=== PATIENT | male | born 2000 | race Two or more races ===

== ENCOUNTER 2019-06-07 10:26 | Emergency (ER) | payer MEDICAID ==
[~2019-06-07] VITALS: Ht 172.7 cm; Wt 71.0 kg
[2019-06-07] MEDS ORDERED: ACETAMINOPHEN 325MG TABLET ONE (10:40)
[2019-06-07] MEDS ORDERED: IBUPROFEN 600MG TABLET PO ONE (11:30)
[2019-06-07 12:21] VITALS: BP 131/60
== END 2019-06-07 13:25 | disposition home or self-care (01) ==
LOC: ER 10:26
DX: J10.1 Influenza due to other identified influenza virus with other respiratory manifestations (principal); R06.02 Shortness of breath
CPT/HCPCS: 71045; 87804; 93005; 99284